=== PATIENT | female | born 1955 | race Caucasian/White ===

== ENCOUNTER 2018-03-20 08:28 | Outpatient (CLI) | payer BC ==
[2018-03-20 09:26] LABS: CRP HIGH SENSITIVITY 2.2 mg/L
[2018-03-20 11:32] LABS: THYROID STIMULATING HORMONE 2.25 uIU/mL (0.34-5.60)
[2018-03-20 11:34] LABS: FREE T4 (FREE THYROXINE) 0.84 ng/dL (0.58-1.64)
== END 2018-03-20 08:29 | disposition home or self-care (01) ==
LOC: LAB 08:28
PROVIDERS: ATTEND Naturopath
DX: R53.83 Other fatigue (principal); R63.8 Other symptoms and signs concerning food and fluid intake
CPT/HCPCS: 36415; 81599; 82947; 83090; 84439; 84443; 86141; 86376; 86800

== ENCOUNTER 2019-03-18 07:47 | Outpatient (CLI) | payer BC ==
[2019-03-18 09:05] LABS: THYROID STIMULATING HORMONE 1.2 uIU/mL (0.34-5.60)
[2019-03-18 09:07] LABS: FREE T4 (FREE THYROXINE) 0.64 ng/dL (0.58-1.64)
== END 2019-03-18 07:48 | disposition home or self-care (01) ==
LOC: LAB 07:47
PROVIDERS: ATTEND Naturopath
DX: E03.9 Hypothyroidism, unspecified (principal); R73.01 Impaired fasting glucose
CPT/HCPCS: 36415; 82947; 84439; 84443; 84481; 84482

== ENCOUNTER 2019-09-04 09:08 | Outpatient (CLI) | payer BC ==
[2019-09-04 09:25] LABS: BASOPHILS % (AUTO) 0.3 %; EOSINOPHILS # (AUTO) 0.2 10^3/uL (0.0-0.7); HGB - HEMOGLOBIN 13.2 g/dL (12.0-16.0); LYMPHOCYTES # (AUTO) 1.7 10^3/uL (1.5-3.5); LYMPHOCYTES % (AUTO) 28.2 %; MEAN CORPUSCULAR HEMOGLOBIN 28.1 pg (27.0-31.0); MEAN CORPUSCULAR HGB CONC 32.8 g/dL (32.0-36.0); MEAN CORPUSCULAR VOLUME 85.5 fL (81.0-99.0); MEAN PLATELET VOLUME 9.3 fL (7.9-10.8); MONOCYTES # (AUTO) 0.4 10^3/uL (0.0-1.0); MONOCYTES % (AUTO) 7.1 %; NEUTROPHILS # (AUTO) 3.6 10^3/uL (1.5-6.6); NEUTROPHILS % (AUTO) 60.2 %; PLT - PLATELET COUNT 251 10^3/uL (130-450); RED CELL DISTRIBUTION WIDTH 12.3 % (12.0-15.0)
[2019-09-04 09:41] LABS: ALBUMIN 4.7 g/dL (3.2-5.5); BILIRUBIN,TOTAL 0.8 mg/dL (0.2-1.0); CALCIUM 9.2 mg/dL (8.5-10.3); CREATININE 0.7 mg/dL (0.4-1.0); CRP HIGH SENSITIVITY 1.8 mg/L; TOTAL PROTEIN 7.1 g/dL (6.7-8.2)
[2019-09-04 09:42] LABS: HB2 TOTAL 14.2 g/dL; HEMOGLOBIN A1C 0.54 g/dL; HEMOGLOBIN A1C % 5.6 % (4.6-6.2)
[2019-09-04 09:57] LABS: THYROID STIMULATING HORMONE 0.91 uIU/mL (0.34-5.60)
[2019-09-04 09:59] LABS: FREE T3 3.5 pg/mL (2.5-3.9); FREE T4 (FREE THYROXINE) 0.66 ng/dL (0.58-1.64)
== END 2019-09-04 09:09 | disposition home or self-care (01) ==
LOC: LAB 09:08
PROVIDERS: ATTEND Naturopath
DX: E03.9 Hypothyroidism, unspecified (principal)
CPT/HCPCS: 36415; 80053; 81599; 83036; 83090; 83525; 84439; 84443; 84481; 85025; 86141

== ENCOUNTER 2020-02-19 17:38 | Emergency (ER) | payer BC ==
--- NOTE | 2020-02-19 17:52 | ED Physician Documentation ---
History of Present Illness - Stated complaint Stated Complaint: LEFT ARM LAC - Chief complaint Chief Complaint: Wound - History obtained from History obtained from: Patient - History of Present Illness Timing: Today Pain level max: 5 Pain level now: 3 - Additonal information Additional information: 65-year-old female who presents to the emergency department after being bit by her dog at home today. Her 2 dogs were fighting when she broke them up sustaining multiple bites to the left forearm. Worse with movement, better with rest. Tetanus up-to-date. Dog's immunizations are up-to-date. Review of Systems Constitutional: denies: Fever, Chills GI: denies: Nausea, Vomiting, Diarrhea Skin: denies: Rash Musculoskeletal: denies: Neck pain, Back pain Neurologic: denies: Headache PD PAST MEDICAL HISTORY - Past Medical History Past Medical History: No - Present Medications Home Medications: Ambulatory Orders Medication Instructions Recorded Confirmed HYDROcod/ACETAM 5/325 [[place] 5/325] 1 - 2 ea PO Q6H PRN #10 tablet 02/19/20 Thyroid [[place] Thyroid] 02/19/20 clindamycin HCL [Cleocin HCl] 300 mg PO Q6H #40 capsule 02/19/20 - Allergies Allergies/Adverse Reactions: Allergies Allergy/AdvReac Type Severity Reaction Status Date / Time Penicillins Allergy Edema Verified 02/19/20 18:07 - Immunizations Immunizations are current?: Yes Immunizations: TDAP current <10years PD ED PE NORMAL - Vitals Vital signs reviewed: Yes - General General: Alert and oriented X 3, No acute distress - HEENT HEENT: Moist mucous membranes - Neck Neck: Supple, no meningeal sign - Derm Derm: Warm and dry - Extremities Extremities: Other (Abrasions to the left forearm. There are a few small punctures. There is one laceration that is about 2 cm in size and deep on the proximal dorsal aspect. Neurovascularly intact.) - Neuro Neuro: Alert and oriented X 3 - Psych Psych: Normal mood, Normal affect Results - Vitals Vitals: Vital Signs - 24 hr 02/19/20 02/19/20 17:43 19:10 Temperature 36.8 C Heart Rate 102 H 75 Respiratory 18 15 Rate Blood Pressure 107/78 116/100 H O2 Saturation 100 100 Oxygen O2 Source Room air - Rads (name of study) L forearm xray Radiology: Prelim report reviewed, EMP read contemporaneously, See rad report (No acute osseous abnormalities. No radiopaque foreign body. ) Procedures - Laceration (location) L forearm Length in cm: 2 Wound type: Curved, Flap, Into subcut fat, Clean Neurovascular status: Sensory intact, Motor intact, Vascular intact Tendon involvement: Tendon intact Anesthesia: Lidocaine 1% Wound Preparation: Irrigated copiously NS, Wound explored, To the base Skin layer closure: Nylon, Interrupted, Size #-0 - enter number (4) Other: Patient tolerated well, No complications, Neurovascular intact, Dressing applied, Tetanus UTD Complexity: Simple PD MEDICAL DECISION MAKING - ED course Complexity details: reviewed results, re-evaluated patient, considered differential, d/w patient ED course: 65-year-old female presents to the emergency department with a dog bite to the left forearm. She is penicillin allergic, will place on clindamycin. Tetanus up-to-date. Warnings of infection given at bedside. There was one laceration that did require repair and was closed loosely. Warnings of infection and instructions on wound care given at bedside. Also counseled on how to minimize scarring. Patient counseled regarding signs and symptoms for which I believe and urgent re-evaluation would be necessary. Patient with good understanding of and agreement to plan and is comfortable going home at this time This document was made in part using voice recognition software. While efforts are made to proofread this document, sound alike and grammatical errors may occur. Departure - Departure Disposition: 01 Home, Self Care Clinical Impression: Dog bite of arm Qualifiers: Encounter type: initial encounter Laterality: left Qualified Code(s): S41.152A - Open bite of left upper arm, initial encounter Condition: Good Instructions: ED Bite Animal General, ED Laceration Ext Sutr Stap Tape Follow-Up: Ok Dye MD [Primary Care Provider] - Prescriptions: clindamycin HCL [Cleocin HCl] 300 mg PO Q6H #40 capsule HYDROcod/ACETAM 5/325 [[place] 5/325] 1 - 2 ea PO Q6H PRN #10 tablet PRN Reason: Pain Comments: Take all antibiotics until gone. Return if you worsen. The sutures should be removed in about 10 to 14 days with your doctor. Return if you notice redness, swelling or drainage from the wound. Do not drink alcohol or drive while on narcotic pain medicine. Note that many narcotic pain relievers also contain tylenol/acetaminophen. Please ensure that your total dose of acetaminophen from all sources does not exceed 3 grams (3000mg) per day. You may constipated on this medication, take a stool softener such as "Colace" twice a day while you are on it. Also recommend a wcab-usb-gctffsy laxative such as senna or MiraLAX any day that you do not have a bowel movement. If you received narcotic pain medication in the emergency department, do not drive or operate machinery for the next 24 hours. Discharge Date/Time: 02/19/20 19:14
[2020-02-19] MEDS ORDERED: oxyCODONE 5 MG TABLET PO STA (18:09)
[2020-02-19] MEDS ORDERED: BUFFERED LIDOCAINE 10 ML SYRINGE SUBQ STA (18:10)
[2020-02-19] MEDS ORDERED: CLINDAMYCIN 150 MG CAPSULE PO STA (18:10)
[2020-02-19] MEDS ORDERED: BACITRACIN ZINC OINT 1 PACKET TOP STA (18:58)
[2020-02-19 19:11] VITALS: BP 116/100
--- NOTE | 2020-02-19 19:13 | XRAY Report ---
PROCEDURE: Forearm LT INDICATIONS: dog bite vs forearm TECHNIQUE: 2 views of the forearm were acquired. COMPARISON: None. FINDINGS: Bones: No fractures or dislocations. No suspicious bony lesions. Soft tissues: No suspicious soft tissue calcifications or masses. No radiopaque foreign body. Tissu e lucency in the forearm consistent with soft tissue laceration. IMPRESSION: No acute osseous abnormalities. No radiopaque foreign body. Reviewed by: Henna Dickens MD on 02/19/2020 7:11 PM PST Approved by: Henna Dickens MD on 02/19/2020 7:11 PM PST Station ID: [id number]
== END 2020-02-19 19:14 | disposition home or self-care (01) ==
LOC: ED 17:38
DX: S51.852A Open bite of left forearm, initial encounter (principal); W54.0XXA Bitten by dog, initial encounter; Y92.009 Unspecified place in unspecified non-institutional (private) residence as the place of occurrence of the external cause
CPT/HCPCS: 12001; 73090; 99282; 99284; A9270

== ENCOUNTER 2020-02-20 13:08 | Emergency (ER) | payer BC ==
--- NOTE | 2020-02-20 13:19 | ED Physician Documentation ---
PD HPI WOUND RECHECK - Stated complaint Stated Complaint: FOLLOW UP - Chief complaint Chief Complaint: General - Histroy obtained from History obtained from: Patient, Other (primary care) - History of Present Illness Location: Other (seen earlier for wound closure and checked with PCP today and records show tetanus is not UTD. Referred to ER for tetanus booster.) PD PAST MEDICAL HISTORY - Present Medications Home Medications: Ambulatory Orders Medication Instructions Recorded Confirmed HYDROcod/ACETAM 5/325 [[place] 5/325] 1 - 2 ea PO Q6H PRN #10 tablet 02/19/20 02/20/20 Thyroid [[place] Thyroid] 60 mg ORAL DAILY 02/19/20 02/20/20 clindamycin HCL [Cleocin HCl] 300 mg PO Q6H #40 capsule 02/19/20 02/20/20 - Allergies Allergies/Adverse Reactions: Allergies Allergy/AdvReac Type Severity Reaction Status Date / Time Penicillins Allergy Edema Verified 02/20/20 13:13 - Immunizations Immunizations are current?: Yes Immunizations: TDAP current <10years PD ED PE NORMAL - Vitals Vital signs reviewed: Yes - General General: Alert and oriented X 3, No acute distress, Well developed/nourished - Derm Derm: Normal color, Warm and dry - Neuro Neuro: Alert and oriented X 3, No motor deficit, No sensory deficit, Normal speech Results - Vitals Vitals: Vital Signs - 24 hr 02/20/20 02/20/20 13:14 13:35 Temperature 36.8 C 37.1 C Heart Rate 66 68 Respiratory 18 16 Rate Blood Pressure 161/82 H 121/72 O2 Saturation 99 100 Oxygen O2 Source Nasal cannula PD MEDICAL DECISION MAKING - ED course Complexity details: considered differential (given tetanus booster.), d/w patient Departure - Departure Disposition: Home, Self Care Clinical Impression: Requires a booster tetanus Condition: Stable Record reviewed to determine appropriate education?: Yes Follow-Up: Ok Dye MD [Primary Care Provider] - Comments: Your prior wound care instructions. You were given a tetanus booster today. Discharge Date/Time: 02/20/20 13:38
[2020-02-20] MEDS ORDERED: TETANUS/DIPHTHERIA/PERTUSSIS 0.5 ML SYRINGE IM ONE (13:23)
[2020-02-20 13:36] VITALS: BP 121/72
== END 2020-02-20 13:38 | disposition home or self-care (01) ==
LOC: ED 13:08
DX: Z23 Encounter for immunization (principal)
CPT/HCPCS: 90471; 99281; 99283

== ENCOUNTER 2020-02-23 12:15 | Emergency (ER) | payer BC ==
[2020-02-23] MEDS ORDERED: SODIUM CHLORIDE 0.9% 1,000 ML IV STA (15:05)
[2020-02-23] MEDS ORDERED: ONDANSETRON 4 MG/2 ML VIAL IVP STA (15:05)
--- NOTE | 2020-02-23 15:13 | ED Physician Documentation ---
History of Present Illness - Stated complaint Stated Complaint: MED REACTION,DIZZY/NAUSEA - Chief complaint Chief Complaint: Allergic Rx - History obtained from History obtained from: Patient - History of Present Illness Timing: Prior to arrival - Additonal information Additional information: 65-year-old female presents to the emergency department for uncontrolled nausea, occasional vomiting and dizziness. She was seen in this ED a few days ago after a dog bite to the left arm. She was started on clindamycin for infection prophylaxis as well as hydrocodone. Since starting the clindamycin, she feel dizzy, like she wants to fall over. Also with oersistent nausea and occassional vomiting. She denies CP, SOA. no leg swelling. Pt last clindamycin dose was yesterday evening. She has had no falls no recent trauma. No facial droop, slurred speech. No arm or leg weakness Review of Systems Constitutional: denies: Fever, Chills Eyes: denies: Loss of vision, Decreased vision Ears: denies: Loss of hearing, Ear pain Nose: denies: Rhinorrhea / runny nose, Congestion, Epistaxis Throat: denies: Dental pain / toothache, Oral lesions / sores, Sore throat Cardiac: denies: Chest pain / pressure, Palpitations, Pedal edema, Calf pain Respiratory: denies: Dyspnea, Cough, Hemoptysis, Wheezing GI: reports: Nausea, Vomiting. denies: Abdominal Pain, Constipation : denies: Dysuria, Frequency, Hesitancy Skin: reports: Bite / sting (Multiple bite/puncture wounds left forearm. Well approximated with sutures. 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 : None HEENT: None Psych: None Musculoskeletal: Fibromyalgia Derm: None - Past Surgical History Past Surgical History: Yes HEENT: Other - Present Medications Home Medications: Ambulatory Orders Medication Instructions Recorded Confirmed HYDROcod/ACETAM 5/325 [[place] 5/325] 1 - 2 ea PO Q6H PRN #10 tablet 02/19/20 02/20/20 Thyroid [[place] Thyroid] 60 mg ORAL DAILY 02/19/20 02/20/20 clindamycin HCL [Cleocin HCl] 300 mg PO Q6H #40 capsule 02/19/20 02/20/20 Ondansetron Odt [Zofran] 4 mg TL Q6H PRN #10 tablet 02/23/20 - Allergies Allergies/Adverse Reactions: Allergies Allergy/AdvReac Type Severity Reaction Status Date / Time Penicillins Allergy Edema Verified 02/23/20 12:29 - Social History Does the pt smoke?: No Smoking Status: Former smoker Does the pt drink ETOH?: Yes Does the pt have substance abuse?: No - Immunizations Immunizations are current?: Yes Immunizations: TDAP current <10years PD ED PE EXPANDED - General General: Alert - Neck Neck: Supple w/out meningeal sx, No tenderness. No: Adenopathy - Cardiac Cardiac: Regular Rate, Regular Rhythm, Radial strong equal, Pedal strong equal, Cap refill < 2 sec. No: Murmur Present - Respiratory Respiratory: Clear to ausultation oxana. No: Distress, Labored - Abdomen Abdomen: Normal Bowel sounds. No: Tender to palpation - Derm Derm: Normal color, Warm and dry, Other (Multiple bite/puncture wounds left forearm. Well approximated with sutures. No surrounding erythema or drainage.) - Extremities Extremities: Normal. No: Pedal edema bilateral, Right calf TTP/cord, Left calf TTP/cord - Neuro Neuro: Alert and Oriented X 3, CNII-XII intact, Normal finger nose, Normal speech. No: Nystagmus - GCS Eye Opening: Spontaneous Motor: Obeys Commands Verbal: Oriented Total: 15 Results - Vitals Vitals: Vital Signs - 24 hr 02/23/20 02/23/20 12:31 16:50 Temperature 36.4 C L 36.7 C Heart Rate 55 L Respiratory 16 Rate Blood Pressure 136/56 H O2 Saturation 100 Oxygen O2 Source Room air - EKG (time done) 1513 Rate: Rate (enter#) (50) Rhythm: NSR Intervals: Prolonged NC QRS: LVH - Labs Labs: Laboratory Tests 02/23/20 02/23/20 02/23/20 15:22 15:22 15:22 WBC 9.1 RBC 5.20 Hgb 14.3 Hct 42.5 MCV 81.7 MCH 27.5 MCHC 33.6 RDW 12.3 Plt Count 261 MPV 9.3 Neut # (Auto) 7.1 H Lymph # (Auto) 1.5 [place] # (Auto) 0.5 Eos # (Auto) 0.1 Baso # (Auto) 0.0 Absolute Nucleated RBC 0.00 Nucleated RBC % 0.0 Sodium 140 Potassium 3.7 Chloride 106 Carbon Dioxide 25 Anion Gap 9.0 BUN 16 Creatinine 0.5 Estimated GFR (MDRD) 124 Glucose 104 H Calcium 9.5 Total Bilirubin 0.7 AST 21 ALT 41 Alkaline Phosphatase 75 Troponin I High Sens 3.3 Total Protein 7.4 Albumin 4.5 Globulin 2.9 Albumin/Globulin Ratio 1.6 Lipase 21 L TSH 02/23/20 15:22 WBC RBC Hgb Hct MCV MCH MCHC RDW Plt Count MPV Neut # (Auto) Lymph # (Auto) [place] # (Auto) Eos # (Auto) Baso # (Auto) Absolute Nucleated RBC Nucleated RBC % Sodium Potassium Chloride Carbon Dioxide Anion Gap BUN Creatinine Estimated GFR (MDRD) Glucose Calcium Total Bilirubin AST ALT Alkaline Phosphatase Troponin I High Sens Total Protein Albumin Globulin Albumin/Globulin Ratio Lipase TSH < 0.08 L - Rads (name of study) CXR Radiology: Final report received (no acute process) CT head Radiology: Final report received (no acute findings) PD MEDICAL DECISION MAKING - ED course Complexity details: reviewed results, re-evaluated patient, considered differential, d/w patient ED course: 65 year old female presents to the ED with nausea and dizziness. Reprots it began after starting clindaymcin for dog nites to the left arm. no focal neuro deficits. Normal cerebellar exam, including gait. no nystagmus. Pt improved int eh ED with IVF and zofran. EKG non ischemic, negative trop. CXR unremarkable. Pt will be dc home with rx for zofran. Pt declined CTA head and neck. She does have an alternative rx for doxycycline ot fill to prevent infection int he dog bite wound. Tolerating po here in the ED Departure - Departure Disposition: 01 Home, Self Care Clinical Impression: Dizziness, Nausea Condition: Stable Record reviewed to determine appropriate education?: Yes Instructions: ED Dizziness UKO Follow-Up: Ok Dye MD [Primary Care Provider] - Prescriptions: Ondansetron Odt [Zofran] 4 mg TL Q6H PRN #10 tablet PRN Reason: Nausea / Vomiting Comments: Jo I hope that you continue to feel better. Please discontinue taking the clindamycin. I would like you to fill the prescription that your doctor wrote for the doxycycline. The nausea and dizziness may be related to the to the clindamycin. I have prescribed a small amount of Zofran to help with your nausea at home. If your symptoms are not improving over the next 24 to 48 hours please return to the ER for a second look
[2020-02-23 15:28] LABS: BASOPHILS % (AUTO) 0.1 %; EOSINOPHILS # (AUTO) 0.1 10^3/uL (0.0-0.7); EOSINOPHILS % (AUTO) 0.8 %; HCT - HEMATOCRIT 42.5 % (37.0-47.0); HGB - HEMOGLOBIN 14.3 g/dL (12.0-16.0); LYMPHOCYTES # (AUTO) 1.5 10^3/uL (1.5-3.5); LYMPHOCYTES % (AUTO) 16.5 %; MEAN CORPUSCULAR HEMOGLOBIN 27.5 pg (27.0-31.0); MEAN CORPUSCULAR HGB CONC 33.6 g/dL (32.0-36.0); MEAN CORPUSCULAR VOLUME 81.7 fL (81.0-99.0); MEAN PLATELET VOLUME 9.3 fL (7.9-10.8); MONOCYTES # (AUTO) 0.5 10^3/uL (0.0-1.0); MONOCYTES % (AUTO) 4.9 %; NEUTROPHILS # (AUTO) 7.1 10^3/uL (1.5-6.6); NEUTROPHILS % (AUTO) 77.5 %; PLT - PLATELET COUNT 261 10^3/uL (130-450); RED CELL DISTRIBUTION WIDTH 12.3 % (12.0-15.0); WHITE BLOOD COUNT 9.1 x10^3/uL (4.8-10.8)
--- NOTE | 2020-02-23 15:39 | XRAY Report ---
PROCEDURE: Chest 1 View X-Ray INDICATIONS: Chest pain TECHNIQUE: One view of the chest was acquired. COMPARISON: None FINDINGS: Surgical changes and devices: None. Lungs and pleura: No pleural effusions or pneumothorax. Lungs are clear. Mediastinum: Mediastinal contours appear normal. Heart size is normal. Bones and chest wall: No suspicious bony lesions. Overlying soft tissues appear unremarkable. IMPRESSION: No acute finding. Reviewed by: Joel Hernandez MD on 02/23/2020 3:38 PM PST Approved by: Joel Hernandez MD on 02/23/2020 3:38 PM PST Station ID: [id number]
[2020-02-23 15:42] LABS: ALBUMIN 4.5 g/dL (3.2-5.5); ALBUMIN/GLOBULIN RATIO 1.6 (1.0-2.2); BILIRUBIN,TOTAL 0.7 mg/dL (0.2-1.0); CALCIUM 9.5 mg/dL (8.5-10.3); CREATININE 0.5 mg/dL (0.4-1.0); POTASSIUM 3.7 mmol/L (3.5-5.0); TOTAL PROTEIN 7.4 g/dL (6.7-8.2)
--- NOTE | 2020-02-23 16:12 | CT Report ---
PROCEDURE: HEAD WO INDICATIONS: dizziness TECHNIQUE: Noncontrast 4.5 mm thick angled axial sections acquired from the foramen magnum to the vertex. For r adiation dose reduction, the following was used: automated exposure control, adjustment of mA and/or kV according to patient size. COMPARISON: Head CT 03/27/2013. FINDINGS: Image quality: Excellent. CSF spaces: Basal cisterns are patent. No extra-axial fluid collections. Ventricles are normal in size and shape. Brain: No midline shift. No intracranial masses or hemorrhage. Punctate left basal ganglia calcific ation, unchanged. Wright-white matter interface is normal. Skull and face: Calvarium and visualized facial bones are intact, without suspicious lesions. Sinuses: Visualized sinuses and mastoids are clear. IMPRESSION: No acute intracranial abnormality. Reviewed by: Juan Luis Jarquin MD on 02/23/2020 3:11 PM [facility] Approved by: Juan Luis Jarquin MD on 02/23/2020 3:11 PM [facility] Station ID: [id number]
[2020-02-23 18:02] VITALS: BP 138/76
--- OUTSIDE RECORDS SUMMARY | 2020-03-02 00:15 | EXTERNAL MEDICAL SUMMARY RPT | Continuity of Care Document ---
:1955 Demographics Phone Unavailable Preferred Language Unknown Marital Status Unknown Protestant Affiliation Unknown Race Unknown Ethnic Group Unknown Author Organization [place] Address [address] [phone] Phone Care Team Providers Name Role Phone Kotal Unavailable Unavailable ALLEN Unavailable Unavailable Picco Unavailable Unavailable Problems date description facility 2012-08-15 14:40 FAMILY HX-BREAST MALIG [facility] 2012-08-15 14:40 SCRN MAMMO-HIGH RISK PT, MALIGNANT [facility] NEOPLASM OF BREAST 2013-03-27 08:09 DIZZINESS AND GIDDINESS [facility] 2013-03-27 08:09 HEAD INJURY, NOS [facility] 2013-08-05 13:20 MASTODYNIA [facility] 2018-03-20 08:28 OTHER FATIGUE [facility] 2018-03-20 08:28 OTHER SYMPTOMS AND SIGNS [facility] CONCERNING FOOD AND FLUID INTAKE 2019-03-18 07:47 HYPOTHYROIDISM, UNSPECIFIED [facility] 2019-03-18 07:47 IMPAIRED FASTING GLUCOSE [facility] 2019-09-04 09:08 HYPOTHYROIDISM, UNSPECIFIED [facility] 2020-02-19 17:38 OPEN BITE OF LEFT FOREARM, INITIAL [facility] ENCOUNTER 2020-02-19 17:38 BITTEN BY DOG, INITIAL ENCOUNTER [facility] 2020-02-19 17:[address] IN UNSP NON-INSTITUT [facility] (PRIVATE) RESIDENC 2020-02-20 13:08 ENCOUNTER FOR IMMUNIZATION [facility] 2020-02-23 12:15 NAUSEA WITH VOMITING, UNSPECIFIED [facility] 2020-02-23 12:15 DIZZINESS AND GIDDINESS [facility] 2020-02-23 12:15 PERSONAL HISTORY OF [facility]ICOTINE [facility] DE[facility]END[facility] Allergies date description facility HYDROCODONE [facility] IBUPROFEN [facility] OXYCODONE [facility] MIKKI INHIBITORS [facility] NO ALLERGY INFORMATION AVAILABLE [facility] MIKKI INHIBITORS [facility] PENICILLINS [facility] TETRACYCLINES [facility] VANCOMYCIN ANALOGUES [facility] SULFA (SULFONAMIDE ANTIBIOTICS) [facility] LURASIDONE [facility] MORPHINE [facility] RIFAMPIN [facility] DIPHENHYDRAMINE [facility] NEOMYCIN-POLYMYXIN [facility] Penicillins [facility] AD[facility]ES[facility] \T\ TAPE [facility] ALBUTEROL [facility] CIPROFLOXACIN [facility] CLINDAMYCIN [facility]CL [facility] CODEINE SULFATE [facility] DUST MITE EXTRACT [facility] FUROSEMIDE [facility] LEVOFLOXACIN [facility] LOSARTAN POTASSIUM [facility] MORPHINE SULFATE [facility] MORPHINE [facility] PENICILLIN V P[facility]SIUM [facility] POLLEN EXTRACT [facility] SULFASALAZINE [facility] SULFUR [facility] IPRATROPIUM-ALBUTEROL [facility] dical Center [id number] [facility] NITROFURAN DERIVATIVES [facility] NO KNOWN ENVIRONMENTAL ALLERGIES [facility] SULFA ANTIBIOTICS [facility] NIACIN PREPARATIONS [facility] PENICILLINS [facility] TETRACYCLINES [facility] NO KNOWN ALLERGIES [facility] IODINE [facility] LORAZEPAM [facility] DIAZEPAM [facility] CODEINE [facility] CLOTRIMAZOLE [facility] GABAPENTIN [facility] SUCCINYLCHOLINE [facility] ERYTHROMYCIN [facility] Penicillins [facility] Results Social History date description facility [id number]
== END 2020-02-23 18:01 | disposition home or self-care (01) ==
LOC: ED 12:15
DX: R11.2 Nausea with vomiting, unspecified (principal); R42 Dizziness and giddiness; Z87.891 Personal history of nicotine dependence
CPT/HCPCS: 36415; 80053; 83690; 84443; 84484; 85025; 93005; 96361; 96374; 99284